=== PATIENT | female | born 1970 | race Caucasian/White ===

== ENCOUNTER 2022-02-15 00:03 | Day surgery (SDC) | payer OTHER, SELFPAY ==
[2022-02-03 14:43] VITALS: BMI 24.2
[2022-02-15 06:26] VITALS: BP 124/86; PULSE 66; RESP 20; TEMP 36.1; O2SAT 100; BMI 24.5
[2022-02-15] MEDS: LACTATED RINGERS 1,000 ML 150 ML IV CONT (06:40)
--- NOTE | 2022-02-15 07:19 | WPDANESEPPF ---
Anes - Initial Pre Proc Eval Procedure: Operation Date: 02/15/22 07:30 Proposed Procedures p Screening Colonoscopy - Eddie Zhou MD Date/Time: 02/15/22 07:19 Surgeon: Eddie Zhou MD Pre Op Diagnosis: neoplasm screening Patient Data Age: 51 Gender: F Height: 1.68 m Weight: 69.1 kg Last Vital Signs Temp 96.9 F L 02/15/22 06:26 Pulse 66 02/15/22 06:26 Resp 20 02/15/22 06:26 BP 124/86 02/15/22 06:26 Pulse Ox 100 02/15/22 06:26 Allergies Allergy/AdvReac Type Severity Reaction Status Date / Time dichloralphenazone Allergy Intermediate N/V, Verified 11/16/21 10:07 CHILLS, HALLUCINATE Antihistamines - Alkylamine Allergy Unknown Unknown Verified 11/16/21 10:07 isometheptene [From Midrin] Allergy Nausea and Verified 02/15/22 06:43 Vomiting ASPIRIN (Generic Allergy) Allergy Intermediate N/V Uncoded 11/16/21 10:07 ISOMETHEPTENE MUCATE Allergy Intermediate N/V, Uncoded 11/16/21 10:07 CHILLS, HALLUCINATE Home Medications Medication Instructions Recorded Confirmed Type cyclobenzaprine 10 mg tablet 10 mg PO TID #30 tablet 11/16/21 02/15/22 Rx rizatriptan 10 mg disintegrating 10 mg PO ONCE PRN #10 tablet 11/16/21 02/15/22 Rx tablet Patient hx anesthesia problems: none Family hx anesthesia problems: none Results Review: All pre-operative results and documents have been reviewed as part of the pre-operative evaluation. [facility] Family History Family History Other Diabetes mellitus Family history of alcoholism Family history of arthritis Family history of hypercholesterolemia Family history of malignant neoplasm Family history of mental disorder Hypertension Social History Social History Years smoked: 35 Tobacco type: e-cigarettes/vaping Alcohol intake: current Substance use: current Substance use type: marijuana Last use: 02/02/22 Living arrangements: with family Spiritual care concerns: No Anes - Eval Final PreProcedure Day of Procedure 02/15/22 07:19 Patient weight: normal Heart: regular rate and rhythm Lungs: clear to auscultation Airway: Mallampati scale class II Neurological: alert and oriented Last oral intake: >/= 8 hours ASA classification: II Emergent: no Anesthetic plan: proceed Anesthesia type and monitoring: general GIVS and standard monitoring Results Review: All pre-operative results and documents have been reviewed as part of the pre-operative evaluation. Informed Consent: The patient's anesthetic plan and its attendant risks and benefits were discussed with the patient/family/POA. Questions were solicited and answers provided to the satisfaction of the patient/family/POA.
--- NOTE | 2022-02-15 07:22 | PM.HPGS ---
History of Present Illness History of Present Illness Consent: Risks, benefits, and alternatives have been discussed and questions answered. Patient agrees to proceed with procedure. Chief complaint: neoplasm screening Narrative: Mini Dumont is a 51 year old female here for first screening colonoscopy Review of Systems Constitutional: Constitutional: Denies headache(s) and Denies weakness Eyes: Eyes: Denies blurry vision ENT: Reports Normal hearing present, Denies headache(s) and Denies neck pain Cardiovascular: Cardiovascular: Denies chest pain and Denies dyspnea Respiratory: Respiratory: Denies dyspnea Gastrointestinal: Gastrointestinal: Reports no additional gastrointestinal complaints Genitourinary: Genitourinary: Denies dysuria Musculoskeletal: Musculoskeletal: Denies neck pain Integumentary/Breasts: Skin/Breast: Denies dry skin Neurologic: Reports Normal hearing present, Denies headache(s) and Denies weakness Psychiatric: Psychiatric: Denies anxiety Endocrine: Endocrine: Denies change in body appearance Hematologic/Lymphatic: Hematologic/Lymphatic: Denies easy bleeding Allergic/Immunologic: Allergic/Immunologic: Denies urticaria PMFSH Past Medical History Medical History (Updated 02/15/22 @ 07:23 by Eddie Zhou MD) Colon cancer screening Family History Family History Other Diabetes mellitus Family history of alcoholism Family history of arthritis Family history of hypercholesterolemia Family history of malignant neoplasm Family history of mental disorder Hypertension Social History Social History Years smoked: 35 Tobacco type: e-cigarettes/vaping Alcohol intake: current Substance use: current Substance use type: marijuana Last use: 02/02/22 Living arrangements: with family Spiritual care concerns: No Meds Home Medications and Allergies Home Medications Medication Instructions Recorded Confirmed Type cyclobenzaprine 10 mg tablet 10 mg PO TID #30 tablet 11/16/21 02/15/22 Rx rizatriptan 10 mg disintegrating 10 mg PO ONCE PRN #10 tablet 11/16/21 02/15/22 Rx tablet Allergies Allergy/AdvReac Type Severity Reaction Status Date / Time dichloralphenazone Allergy Intermediate N/V, Verified 11/16/21 10:07 CHILLS, HALLUCINATE Antihistamines - Alkylamine Allergy Unknown Unknown Verified 11/16/21 10:07 isometheptene [From Midrin] Allergy Nausea and Verified 02/15/22 06:43 Vomiting ASPIRIN (Generic Allergy) Allergy Intermediate N/V Uncoded 11/16/21 10:07 ISOMETHEPTENE MUCATE Allergy Intermediate N/V, Uncoded 11/16/21 10:07 CHILLS, HALLUCINATE Vital Signs Vital Signs - 24 hr 02/15/22 06:26 Temperature 96.9 F L Pulse Rate 66 Respiratory Rate 20 Blood Pressure 124/86 Pulse Oximetry 100 Exam Const: General: comfortable and no acute distress HENMT: General nose exam: Normal nares present Eyes: General: appearance normal, both eyes and all related structures Neck: Neck: no JVD Resp: Auscultation: clear to auscultation bilaterally Cardio: Rate: regular rate Rhythm: regular rhythm GI: Inspection: non-distended GI Palp: Yes Soft to palpation Skin: General skin exam: normal color Neuro: General: gait normal Speech: normal speech Extrem: General: normal to inspection Psych: Mental Status: mental status grossly normal Assessment and Plan Assessment and plan (1) Colon cancer screening: Code(s): Z12.11 - Encounter for screening for malignant neoplasm of colon Status: Acute Assessment and Plan: colonoscopy
[2022-02-15 07:38] VITALS: BP 95/59; PULSE 63; RESP 19; O2SAT 100
[2022-02-15 07:48] VITALS: BP 108/63; PULSE 57; RESP 19; O2SAT 100
[2022-02-15 07:58] VITALS: BP 124/69; PULSE 56; RESP 17; O2SAT 100
== END 2022-02-15 08:11 | disposition home or self-care (01) ==
PROVIDERS: PCP Family Medicine; Visit Provider Internal Medicine Gastroenterology
PROC: 0DJD8ZZ Inspection of Lower Intestinal Tract, Via Natural or Artificial Opening Endoscopic (ICD-10-PCS; CPT 45378; principal; 2022-02-15 07:30)
DX: Z12.11 Encounter for screening for malignant neoplasm of colon (principal); K57.30 Diverticulosis of large intestine without perforation or abscess without bleeding; K64.8 Other hemorrhoids; F17.290 Nicotine dependence, other tobacco product, uncomplicated; F12.90 Cannabis use, unspecified, uncomplicated
CPT/HCPCS: 45378; J2704; J7120

== ENCOUNTER 2023-01-27 16:52 | Outpatient (CLI) | payer OTHER, SELFPAY ==
--- NOTE | ~2023-01-27 | MM_ITS ---
EXAMINATION: MM screening serene BI w charlie HISTORY: Screening mammogram TECHNIQUE: Craniocaudal and mediolateral oblique 3-D tomosynthesis images were obtained and synthetic 2-D images were generated. CAD analysis was submitted and interpreted. COMPARISON: 11/25/2018 and 12/19/2013 BREAST PARENCHYMAL COMPOSITION:There are scattered areas of fibroglandular density. FINDINGS: No suspicious mass, calcification, or architectural distortion are identified in either betty ast to suggest malignancy. There has been no suspicious interval change. IMPRESSION: No mammographic evidence of malignancy. Recommend routine screening mammography in one year. BI-RADS Category 1: Negative Reviewed, dictated and finalized at location .
== END 2023-01-27 16:53 | disposition home or self-care (01) ==
LOC: ANHIMG 16:56
PROVIDERS: PCP Emergency Medicine; Visit Provider Emergency Medicine
DX: Z12.31 Encounter for screening mammogram for malignant neoplasm of breast (principal)
CPT/HCPCS: 77063; 77067

== ENCOUNTER 2025-06-26 15:33 | Outpatient (CLI) | payer BC, SELFPAY ==
--- NOTE | ~2025-06-26 | MM_ITS ---
EXAMINATION: MM screening serene BI w charlie HISTORY: Screening TECHNIQUE: Craniocaudal and mediolateral oblique 3-D tomosynthesis images were obtained and synthetic 2-D images were generated. CAD analysis was submitted and interpreted. COMPARISON: Comparison to multiple prior studies sequentially, with oldest reviewed study dated , 10/01/2011 BREAST PARENCHYMAL COMPOSITION: There are scattered areas of fibroglandular density. FINDINGS: There is no evidence of suspicious mass, calcification, or architectural distortion to suggest malignancy in either breast. IMPRESSION: 1. No mammographic evidence of malignancy. 2. Recommend routine screening mammography in one year. BI-RADS Category 1: Negative Reviewed, dictated and finalized at location B.
--- OUTSIDE RECORDS SUMMARY | 2025-06-26 15:35 | XMS_ITS | Clinical Summary ---
Author Organization [facility] Address [address] [place] [address] Phone Care Team Providers Care Licensed Direct Entry Midwife Name Role Phone Unavailable Primary Care Provider Unavailabl e Allergies Active Allergy Reactions Criticality Noted Date Comments Aspirin Vomiting High 06/17/2016 Other Vomiting High 06/17/2016 Midrin pt hallucinated with this medication Medications Estradiol (ESTRACE VA) 1 mg by Vaginal route. Active Multiple Vitamin (MULTIVITAMINS PO) Take by mouth. Active CALCIUM PO Take by mouth. Active MAGNESIUM PO Take by mouth. Active Zinc 50 MG Capsule Take by mouth. Active Active Problems No known active problems Family History Medical History Relation Name Comments Thyroid Disease Daughter Thyroid Disease Maternal Grandmother Thyroid Disease Mother Relation Name Status Comments Daughter Maternal Grandmother Mother Alive Social History Tobacco Use Types Packs/Day Years Used Date Smoking Tobacco: Every Day Cigarettes Alcohol Use Standard Drinks/Week Comments Yes 0 (1 standard drink = 0.6 oz pur e alcohol) Comments No Sex and Gender Information Value Date Recorded Sex Assigned at Not on file Legal Sex Female 12:10 PM CDT Gender Identity Not on file Sexual Orientation Not on file Last Filed Vital Signs Vital Sign Reading Time Taken Comments Blood Pressure 110/80 06/17/2016 8:31 AM CDT Pulse 68 06/17/2016 8:31 AM CDT Temperature 36.9 C (98.5 F) 06/17/2016 8:31 AM CDT Respiratory Rate 18 06/17/2016 8:31 AM CDT Oxygen Saturation 97% 06/17/2016 8:31 AM CDT Inhaled Oxygen Concentration - - Weight 53.5 kg (118 lb) 06/17/2016 8:31 AM CDT Height 168.9 cm (5' 6.5) 06/17/2016 8:31 AM CDT Body Mass Index 18.76 06/17/2016 8:31 AM CDT Plan of Treatment Health Maintenance Due Date Last Done Comments Hepatitis C Virus (HCV) Screening 1969 TdaP Immunization 1969 Hepatitis B Immunization (1 of 3 - 19+ 3-dose series) 1988 HPV/Cotest 1999 Cologuard 2014 Colonoscopy 2014 Colorectal Cancer Screening 2014 Immunochemical Fecal Occult Blood 2014 Cervical Cancer Screening (CCS) 06/17/2019 Pap Smear 06/17/2019 06/17/2016 Pneumococcal Immunization (5 0+ years) (1 of 1 - PCV) 2019 Zoster Immunization (1 of 2) 2019 SARS-COV-2 Immunization (1 - 2023- season) 2024 Influenza Immunization (#1) 2025 Respiratory Syncytial Virus (RSV) Immunization (Adult) (1 - 1-dose 75+ series) 2044 Human Papillomavirus (HPV) Immunization Aged Out No longer eligible b ased on patient's age to complete this topic Meningococcal Immunization (ACWY) Aged Out No longer eligible based on patient's age to complete this topic Rotavirus Immunization Aged Out No lo nger eligible based on patient's age to complete this topic Procedures Procedure Name Priority Date/Time Associated Diagnosis Comments PATHOLOGY CYTOLOGY OUTSIDE [employer] EXECUTIVE Routine 06/17/2016 Chronic vaginitis from Last 3 Months or Most Recently Relevant to Health Maintenance Results * PATHOLOGY CYTOLOGY OUTSIDE [employer]ES ADVERTISING EXECUTIVE (06/17/2016) Specimen of unknown material (specimen) Cait Berumen PAC PATHOLOGY/CYTOLOGY ORDERA BLES Final Result from Last 3 Months or Most Recently Relevant to Health Maintenance
== END 2025-06-26 15:34 | disposition home or self-care (01) ==
LOC: ANHFOHIMG 15:34
PROVIDERS: PCP Emergency Medicine; Visit Provider Emergency Medicine
DX: Z12.31 Encounter for screening mammogram for malignant neoplasm of breast (principal)
CPT/HCPCS: 77063; 77067